=== PATIENT | male | born 1980 | race African-American/Black ===

== ENCOUNTER 2021-05-13 12:37 | Emergency (ER) | payer SELFPAY ==
[~2021-05-13] VITALS: Ht 175.3 cm; Wt 77.1 kg
[2021-05-13] MEDS ORDERED: IV NORMAL SALINE 1000 ML BAG IV ONE (13:15)
[2021-05-13 13:21] LABS: HEMATOCRIT 47.7 % (36.7-47.1); MEAN CORPUSCULAR HEMOGLOBIN 28.6 uug (23.8-33.4); MEAN CORPUSCULAR VOLUME 85.9 fL (73.0-96.2); PLATELET COUNT (AUTO) 209 K/uL (152-348)
[2021-05-13 13:22] LABS: CREATININE 1.2 mg/dL (0.6-1.3); POTASSIUM 3.8 mmol/L (3.5-5.1)
[2021-05-13 13:37] LABS: BILIRUBIN,DIRECT 0.2 mg/dL (0.0-0.2); BILIRUBIN,TOTAL 0.6 mg/dL (0.2-1.0); TOTAL PROTEIN, SERUM 8.5 g/dL (6.4-8.2)
--- NOTE | 2021-05-13 15:50 | NUR ---
NS complete. Pt tolerated well without adverse event. Pt states improvement in S/S
--- NOTE | 2021-05-13 15:56 | NUR ---
Saline lock D/C, clear and intact from (L) AC. Patient discharged to home in stable condition. Written and verbal after care instructions given. Patient verbalizes understanding of instructions. Stressed follow up or return to ER for worsening s/s.
[2021-05-13 15:59] VITALS: BP 158/80
== END 2021-05-13 15:59 | disposition home or self-care (01) ==
LOC: ER 12:37
DX: R06.02 Shortness of breath (principal)
CPT/HCPCS: 36415; 70030-TC; 71045; 84443; 85025; 85730; 93005; A4663